=== PATIENT | female | born 1995 | race African-American/Black ===

== ENCOUNTER 2017-06-24 19:45 | Emergency (ER) | payer MEDICAID ==
[~2017-06-24] VITALS: Ht 162.6 cm; Wt 82.7 kg
[2017-06-24 20:07] VITALS: BP 132/73; PULSE 89; RESP 16; TEMP 98.8; O2SAT 98
--- NOTE | 2017-06-24 20:45 | PD ---
HPI Chief Complaint: Numbness/Tingling Time Seen by Provider: 20:16 Travel History International Travel<30 days: No Contact w/Intl Traveler<30days: No Traveled to known affect area: No History of Present Illness HPI 21-year-old female here with multiple vague chief complaints. She reports she had left sided facial swelling yesterday which has since resolved. She felt a mild, gradual onset ,generalized headaches yesterday which has since resolved. These headaches are similar to prior. She felt a pins and needles sensation in her left bicep earlier today which has also since resolved. Someone told him this may be indications of a stroke therefore she came in for evaluation. She currently has no symptoms. She has no prior history of stroke. She is currently treated for hypertension and hyperlipidemia. [facility] Past Medical History Narrative Medical Significant for hypertension and hyperlipidemia ?: Not Social History Tobacco Use: No Allergies-Medications (Allergen,Severity, Reaction): Coded Allergies: amoxicillin (Verified Allergy, Severe, 06/24/17) swelling and hives azithromycin (Verified Allergy, Severe, 06/24/17) swelling chlorpromazine (Verified Allergy, Severe, 06/24/17) hives metformin (Verified Allergy, Severe, 06/24/17) hives promethazine (Verified Allergy, Severe, 06/24/17) hives Review of Systems Except as stated in HPI: all other systems reviewed are Neg General / Constitutional: No: Fever Eyes: No: Visual changes HENT: No: Headaches Cardiovascular: No: Chest Pain or Discomfort Respiratory: No: Shortness of Breath Gastrointestinal: No: Abdominal Pain Genitourinary: No: Dysuria Musculoskeletal: No: Pain Skin: No Rash Neurologic: No: Weakness Psychiatric: No: Depression Physical Exam Narrative GENERAL: Alert well-appearing female. SKIN: Warm and dry. HEAD: Atraumatic. Normocephalic. No facial swelling. EYES: Pupils equal and round. No scleral icterus. No injection or drainage. ENT: No nasal bleeding or discharge. Mucous membranes pink and moist. NECK: Trachea midline. No JVD. CARDIOVASCULAR: Regular rate and rhythm. RESPIRATORY: No accessory muscle use. Clear to auscultation. Breath sounds equal bilaterally. GASTROINTESTINAL: Abdomen soft, non-tender, nondistended. Hepatic and splenic margins not palpable. MUSCULOSKELETAL: Extremities without clubbing, cyanosis, or edema. No obvious deformities. NEUROLOGICAL: Awake and alert. No obvious cranial nerve deficits. Motor grossly within normal limits. Five out of 5 muscle strength in the arms and legs. Normal speech. PSYCHIATRIC: Appropriate mood and affect; insight and judgment normal. Data Data Last Documented VS Vital Signs Date Time Temp Pulse Resp B/P (MAP) Pulse Ox O2 Delivery O2 Flow Rate FiO2 06/24/17 20:07 98.8 89 16 132/73 (92) 98 MDM Medical Decision Making Medical Screen Exam Complete: Yes Emergency Medical Condition: Yes Differential Diagnosis Migraine, tension headache, very unlikely TIA Narrative Course 21-year-old female here for evaluation of multiple vague complaints all of which have resolved prior. She has a normal neurologic exam. Her vital signs are stable. Return precautions were discussed. She is to follow-up with her primary doctor. Diagnosis Primary Impression: Encounter for medical screening examination Referrals: Primary Care Physician Additional Instructions: Follow-up with her primary doctor. Disposition: 01 DISCHARGE HOME Condition: Stable Lupe Doshi Jun 24, 2017 20:45
== END 2017-06-24 21:00 | disposition home or self-care (01) ==
LOC: NEPK 19:45
DX: R20.0 Anesthesia of skin (principal); E78.5 Hyperlipidemia, unspecified; I10 Essential (primary) hypertension
CPT/HCPCS: 99281

== ENCOUNTER 2017-06-28 18:38 | Emergency (ER) | payer MEDICAID ==
[~2017-06-28] VITALS: Ht 162.6 cm; Wt 82.7 kg
[2017-06-28 18:40] VITALS: BP 133/80; PULSE 114; RESP 16; TEMP 99.1; O2SAT 97
[2017-06-28] MEDS ORDERED: BENZ100 PO (20:11)
[2017-06-28] MEDS ORDERED: OSEL75 PO (20:11)
--- NOTE | 2017-06-28 20:11 | PD ---
HPI Chief Complaint: Cold / Flu Symptoms Time Seen by Provider: 20:02 Travel History International Travel<30 days: No Contact w/Intl Traveler<30days: No Traveled to known affect area: No History of Present Illness HPI This is a 21-year-old female here with body ache, fever, cough times one day. Symptom severity is moderate. No aggravating or alleviating factors. No sick contacts or foreign travel. PFSH Past Medical History High Cholesterol: Yes Diabetes: Yes Hypertension: Yes ?: Not Past Surgical History Tonsillectomy: Yes Valve Replacement: Yes (adenoids ) Social History Alcohol Use: Yes (occ) Tobacco Use: No Substance Use: No Allergies-Medications (Allergen,Severity, Reaction): Coded Allergies: amoxicillin (Verified Allergy, Severe, 06/24/17) swelling and hives azithromycin (Verified Allergy, Severe, 06/24/17) swelling chlorpromazine (Verified Allergy, Severe, 06/24/17) hives metformin (Verified Allergy, Severe, 06/24/17) hives promethazine (Verified Allergy, Severe, 06/24/17) hives Reported Meds & Prescriptions Reported Meds & Active Scripts Active Tessalon Perles (Benzonatate) 100 Mg Cap 200 Mg PO TID PRN Tamiflu (Oseltamivir Phosphate) 75 Mg Cap 75 Mg PO BID 5 Days Review of Systems Except as stated in HPI: all other systems reviewed are Neg General / Constitutional: Positive: Fever Eyes: No: Visual changes HENT: No: Headaches Cardiovascular: No: Chest Pain or Discomfort Respiratory: Positive: Cough Gastrointestinal: No: Abdominal Pain Genitourinary: No: Dysuria Musculoskeletal: Positive: Myalgias Skin: No Rash Physical Exam Narrative GENERAL: Alert female. Nontoxic appearing. SKIN: Warm and dry. HEAD: Normocephalic. EYES: No injection or drainage. Ear/nose/throat: No TM erythema. Clear nasal discharge. Mild pharyngeal erythema. No tonsillar hypertrophy or exudate. Uvula is midline. Airway is patent. NECK: Supple, trachea midline. No lymphadenopathy. No meningismus CARDIOVASCULAR: Regular rate and rhythm RESPIRATORY: Breath sounds equal bilaterally. No accessory muscle use. GASTROINTESTINAL: Abdomen soft, non-tender, nondistended. MUSCULOSKELETAL: No cyanosis, or edema. Data Data Last Documented VS Vital Signs Date Time Temp Pulse Resp B/P (MAP) Pulse Ox O2 Delivery O2 Flow Rate FiO2 06/28/17 18:40 99.1 114 16 133/80 (97) 97 Orders Orders Influenzae A/B Antigen (06/28/17 18:45) Group A Rapid Strep Screen (06/28/17 18:45) Strep Culture (Group A) (06/28/17 19:15) MDM Medical Decision Making Medical Screen Exam Complete: Yes Emergency Medical Condition: Yes Differential Diagnosis Influenza, strep pharyngitis, URI Narrative Course 21-year-old female here with flulike symptoms. Her vital signs are stable. She is nontoxic appearing. Influenza A positive Diagnosis Primary Impression: Influenza A Referrals: Primary Care Physician Departure Forms: Tests/Procedures, Work Release Enter return to work date: Jul 02, 2017 Additional Instructions: Tylenol and ibuprofen as needed for pain and fever. Drink plenty of fluids. Rest. Tamiflu as directed. Scripts Benzonatate (Tessalon Perles) 100 Mg Cap 200 MG PO TID Y for COUGH, #14 CAP 0 Refills Prov: Lupe Doshi 06/28/17 Oseltamivir (Tamiflu) 75 Mg Cap 75 MG PO BID for Mgmt Viral Infection for 5 Days, #10 CAP 0 Refills Prov: Lupe Doshi 06/28/17 Disposition: 01 DISCHARGE HOME Condition: Stable Lupe Doshi Jun 28, 2017 20:11
[2017-06-29] MEDS ORDERED: DICL75TA PO (21:31)
== END 2017-06-28 20:27 | disposition home or self-care (01) ==
LOC: NEPK 18:38
DX: J10.1 Influenza due to other identified influenza virus with other respiratory manifestations (principal); E78.00 Pure hypercholesterolemia, unspecified; E11.9 Type 2 diabetes mellitus without complications; I10 Essential (primary) hypertension
CPT/HCPCS: 87081; 87804; 87880; 99284

== ENCOUNTER 2017-06-29 17:56 | Emergency (ER) | payer MEDICAID ==
[~2017-06-29 17:56] MED LIST: BENZ100 PO; OSEL75 PO
[2017-06-29 17:57] VITALS: BP 146/80; PULSE 122; RESP 18; TEMP 99.6; O2SAT 97
[2017-06-29] MEDS ORDERED: IBUPROFEN 800 MG TAB PO ONE (18:15)
[2017-06-29] MEDS ORDERED: SODIUM CHLOR 0.9% 1000 ML INJ 1,000 ML IV ONE (20:00)
[2017-06-29] MEDS ORDERED: KETOROLAC TROMETHAMINE 30 MG/ML (IVP) VIAL IV PUSH ONE (20:00)
--- NOTE | 2017-06-29 20:22 | PD ---
HPI Chief Complaint: Cold / Flu Symptoms Time Seen by Provider: 19:36 Travel History International Travel<30 days: No Contact w/Intl Traveler<30days: No Traveled to known affect area: No History of Present Illness HPI 21-year-old female who presents to the ED for evaluation of headache, body aches , some neck pain congestion in cough. Per patient she will seen here yesterday diagnosed with the flu. She had a flu test positive for influenza A. She started on Tamiflu when she has been doing okay except for the discomfort. Per patient she has never had the flu before. Per patient she still concerned because she has has this new pain that she did not have yesterday. She is not sure if she was not given the right medication or diagnosed properly. She denies any chest pain or shortness of breath to me. She states that she has fevers chills sweats. She has been taking Tylenol with some relief. She denies any trouble swallowing. She has any nausea or vomiting. No bowel movement or urinary issues. Denies . Patient hemorrhage concerning the new pain that she is having of her head an neck. She does have multiple allergies to different medications. She has a history of diabetes. Symptoms going for about two and a half days now. No sick contacts. PFSH Past Medical History High Cholesterol: Yes Diabetes: Yes Patient Takes Glucophage: Yes Hypertension: Yes Immunizations Current: Yes ?: Not Past Surgical History Tonsillectomy: Yes Valve Replacement: Yes (adenoids ) Social History Alcohol Use: Yes (occ) Tobacco Use: No Substance Use: No Allergies-Medications (Allergen,Severity, Reaction): Coded Allergies: amoxicillin (Verified Allergy, Severe, 06/24/17) swelling and hives azithromycin (Verified Allergy, Severe, 06/24/17) swelling chlorpromazine (Verified Allergy, Severe, 06/24/17) hives metformin (Verified Allergy, Severe, 06/24/17) hives promethazine (Verified Allergy, Severe, 06/24/17) hives Reported Meds & Prescriptions Reported Meds & Active Scripts Active Tessalon Perles (Benzonatate) 100 Mg Cap 200 Mg PO TID PRN Tamiflu (Oseltamivir Phosphate) 75 Mg Cap 75 Mg PO BID 5 Days Review of Systems Except as stated in HPI: all other systems reviewed are Neg Physical Exam Narrative GENERAL: Well-nourished, well-developed patient in no apparent distress. SKIN: Warm and dry. HEAD: Atraumatic. Normocephalic. EYES: Pupils equal and round reactive to light and accommodation. No scleral icterus. No injection or drainage. ENT: No nasal bleeding or discharge. Mucous membranes pink and moist. TMs are clear with no sign of infection or perforation. No mastoid tenderness. Ear canals are intact bilaterally. No lymphadenopathy. Nostril mucosa is red and moist with clear mucus noted. No sinus tenderness to palpation noted. Tonsils are not enlarged or swollen. No ulvua Deviation. Tongue is midline. NECK: Trachea midline. No JVD. No meningeal signs noted CARDIOVASCULAR: Regular rate and rhythm. RESPIRATORY: No accessory muscle use. Clear to auscultation. Breath sounds equal bilaterally. GASTROINTESTINAL: Abdomen soft, non-tender, nondistended. Hepatic and splenic margins not palpable. MUSCULOSKELETAL: Extremities without clubbing, cyanosis, or edema. No obvious deformities. NEUROLOGICAL: Awake and alert. No obvious cranial nerve deficits. Motor grossly within normal limits. Five out of 5 muscle strength in the arms and legs. Normal speech. PSYCHIATRIC: Appropriate mood and affect; insight and judgment normal. Data Data Last Documented VS Vital Signs Date Time Temp Pulse Resp B/P (MAP) Pulse Ox O2 Delivery O2 Flow Rate FiO2 06/29/17 17:57 99.6 122 18 146/80 (102) 97 Orders Orders Ibuprofen (Motrin) (06/29/17 18:15) Complete Blood Count With Diff (06/29/17 19:52) Basic Metabolic Panel (Bmp) (06/29/17 19:52) Magnesium (Mg) (06/29/17 19:52) Iv Access Insert/Monitor (06/29/17 19:52) Sodium Chlor 0.9% 1000 Ml Inj (Ns 1000 M (06/29/17 20:00) Ketorolac Inj (Toradol Inj) (06/29/17 20:00) Ed Urine Pregnancytest Poc (06/29/17 19:52) Labs Laboratory Tests Test 06/29/17 20:10 White Blood Count 6.5 TH/MM3 Red Blood Count 5.36 MIL/MM3 Hemoglobin 13.8 GM/DL Hematocrit 42.3 % Mean Corpuscular Volume 78.8 FL Mean Corpuscular Hemoglobin 25.7 PG Mean Corpuscular Hemoglobin Concent 32.5 % Red Cell Distribution Width 13.2 % Platelet Count 215 TH/MM3 Mean Platelet Volume 9.7 FL Neutrophils (%) (Auto) 63.0 % Lymphocytes (%) (Auto) 21.4 % Monocytes (%) (Auto) 14.0 % Eosinophils (%) (Auto) 1.3 % Basophils (%) (Auto) 0.3 % Neutrophils # (Auto) 4.1 TH/MM3 Lymphocytes # (Auto) 1.4 TH/MM3 Monocytes # (Auto) 0.9 TH/MM3 Eosinophils # (Auto) 0.1 TH/MM3 Basophils # (Auto) 0.0 TH/MM3 CBC Comment DIFF FINAL Differential Comment Blood Urea Nitrogen 11 MG/DL Creatinine 0.93 MG/DL Random Glucose 350 MG/DL Calcium Level 8.9 MG/DL Magnesium Level 1.9 MG/DL Sodium Level 134 MEQ/L Potassium Level 3.8 MEQ/L Chloride Level 101 MEQ/L Carbon Dioxide Level 24.7 MEQ/L Anion Gap 8 MEQ/L Estimat Glomerular Filtration Rate 92 ML/MIN MDM Medical Decision Making Medical Screen Exam Complete: Yes Emergency Medical Condition: Yes Medical Record Reviewed: Yes Interpretation(s) CBC & BMP Diagram 06/29/17 20:10 Calcium Level 8.9, Magnesium Level 1.9 Differential Diagnosis Influenza versus sinusitis versus viral illness versus dehydration versus dehydration Narrative Course 21-year-old female presents to the ED for evaluation of cold-like symptoms. Patient has probably examinable as found to have signs or symptoms consistent appears to be influenza. No sign of meningitis or any significant disease. Patient wants for sure. I will do some blood work as she does appear to be slightly dehydrated. She will given 1 bolus of fluid on Toradol for discomfort with good results. She will told to continue taking the Tamiflu in the Tessalon Perles. She was not told that the symptoms will likely last a couple days to a couple of weeks. She was given a note for work. Given a prescription for diclofenac sodium for discomfort to help her with her body aches but she was not also told to take Tylenol and ibuprofen for this. She understands reasons to come back. Follow-up with PCP. See ED worsening symptoms. Diagnosis Primary Impression: Influenza A Patient Instructions: General Instructions Departure Forms: Tests/Procedures, Work Release Enter return to work date: Jul 02, 2017 Additional Instructions: Motrin and Tylenol for pain and fever. You can use [id number] antihistamine as well as well as Mucinex as needed for runny nose and congestion. Cough drops for cough as needed. Drink plenty of fluids. Follow-up with PCP. See ED for worsening symptoms. Med/Other Pt SpecificInfo: Prescription(s) given Disposition: 01 DISCHARGE HOME Condition: Stable Graham Nielsen Jun 29, 2017 20:22
[2017-06-29 21:02] LABS: AUTOMATED NEUTROPHIL # 4.1 TH/MM3 (1.8-7.7); BASOPHIL % 0.3 % (0.0-2.0); EOSINOPHIL # 0.1 TH/MM3 (0-0.4); EOSINOPHIL % 1.3 % (0.0-4.0); HEMATOCRIT 42.3 % (35.0-46.0); HEMOGLOBIN 13.8 GM/DL (11.6-15.3); LYMPH % 21.4 % (9.0-44.0); LYMPHOCYTE # 1.4 TH/MM3 (1.0-4.8); MEAN CELL VOLUME 78.8 FL (80.0-100.0); MEAN CORPUSCULAR HEMOGLOBIN 25.7 PG (27.0-34.0); MEAN CORPUSCULAR HGB CONC 32.5 % (32.0-36.0); MEAN PLATELET VOLUME 9.7 FL (7.0-11.0); MONOCYTE # 0.9 TH/MM3 (0-0.9); PLATELET COUNT 215 TH/MM3 (150-450); RED BLOOD COUNT 5.36 MIL/MM3 (4.00-5.30); RED CELL DISTRIBUTION WIDTH 13.2 % (11.6-17.2); WHITE BLOOD COUNT 6.5 TH/MM3 (4.0-11.0)
[2017-06-29 21:24] LABS: BICARBONATE 24.7 MEQ/L (21.0-32.0); CALCIUM 8.9 MG/DL (8.5-10.1); CREATININE 0.93 MG/DL (0.50-1.00); MAGNESIUM 1.9 MG/DL (1.5-2.5)
[2017-06-29] MEDS ORDERED: DICL75TA PO (21:31)
== END 2017-06-29 22:05 | disposition home or self-care (01) ==
LOC: NEPE 17:56
DX: J10.1 Influenza due to other identified influenza virus with other respiratory manifestations (principal); E86.0 Dehydration
CPT/HCPCS: 80048; 83735; 84703; 85025; 96374; 99284; J1885; J7030